=== PATIENT | female | born 1960 | race Hispanic/Latino ===

== ENCOUNTER → 2018-02-07 | Outpatient (CLI) | payer OTHER | END | disposition home or self-care (01) | LOC: RAH 10:24 | PROVIDERS: ATTEND Family Medicine | DX: K42.9 Umbilical hernia without obstruction or gangrene (principal) | CPT/HCPCS: 76705 ==

== ENCOUNTER → 2019-01-07 | Outpatient (CLI) | payer OTHER | END | disposition home or self-care (01) | LOC: RAH 12:34 | PROVIDERS: ATTEND Obstetrics & Gynecology | DX: Z12.31 Encounter for screening mammogram for malignant neoplasm of breast (principal) | CPT/HCPCS: 77067 ==

== ENCOUNTER 2019-07-07 08:30 | Day surgery (SDC) | payer OTHER ==
[2019-07-07] VITALS (7 sets, daily range): BP systolic 91–113; BP diastolic 41–55
[~2019-07-07 08:30] MED LIST: LIDOCAINE PO; LORA0.5T2 PO; MULT-1258 PO; PRAV40TA PO; PRED5TAB PO; PREG100C PO; PREM125 PO; RABE20 PO; SODIUM CHLORIDE 0.9% 1000ML 1,000 ML IV ONE; SUCR1TAB2 PO; TOPI100T31 PO
[2019-07-07] MEDS ORDERED: PRAV40TA PO (11:12)
[2019-07-07] MEDS ORDERED: SODIUM CHLORIDE 0.9% 10 ML VIAL ONE (13:14)
[2019-07-07] MEDS ORDERED: PHENYLEPHRINE HCL 10 MG/ML 1ML VIAL IV ONE (13:14)
[2019-07-07] MEDS ORDERED: PROPOFOL 10 MG/ML 20ML VIAL IV ONE (13:18)
--- NOTE | 2019-07-07 13:50 | NUR ---
SKIN TEAR PT. HAS SKIN TEAR TO THE LEFT FOREARM FROM A FALL AT HOME 4 DAYS AGO.
--- NOTE | 2019-07-07 13:55 | NUR ---
D/C PT. LEFT VIA WC WITH NO COMPLICATION.
--- NOTE | 2019-07-07 13:55 | NUR ---
D/C UPON D/C PT. STATED SHE FELL AT HOME 4 DAYS AGO HAS BRUISES TO L/B.
== END 2019-07-07 13:55 | disposition home or self-care (01) ==
LOC: ENDO 08:30 → DAH 08:30 → ENDO 13:55
PROVIDERS: ATTEND Internal Medicine Gastroenterology
DX: D12.2 Benign neoplasm of ascending colon (principal); D12.4 Benign neoplasm of descending colon; D12.3 Benign neoplasm of transverse colon; K57.30 Diverticulosis of large intestine without perforation or abscess without bleeding; K64.0 First degree hemorrhoids; K44.9 Diaphragmatic hernia without obstruction or gangrene; K22.8 Other specified diseases of esophagus; K31.89 Other diseases of stomach and duodenum; F41.9 Anxiety disorder, unspecified; F32.9 Major depressive disorder, single episode, unspecified; E78.5 Hyperlipidemia, unspecified; M79.7 Fibromyalgia; Z90.89 Acquired absence of other organs; Z90.710 Acquired absence of both cervix and uterus; Z88.2 Allergy status to sulfonamides; Z88.8 Allergy status to other drugs, medicaments and biological substances; Z79.899 Other long term (current) drug therapy; J45.909 Unspecified asthma, uncomplicated; K29.50 Unspecified chronic gastritis without bleeding
CPT/HCPCS: 43239; 45380; 45385; 88305; A4606; J2370; J2704; J7030

== ENCOUNTER → 2020-01-18 | Outpatient (CLI) | payer OTHER ==
[~2020-01-18] MED LIST changes: -SODIUM CHLORIDE 0.9% 1000ML 1,000 ML IV ONE
== END | disposition home or self-care (01) ==
LOC: RAH 08:37
PROVIDERS: ATTEND Family Medicine
DX: Z12.31 Encounter for screening mammogram for malignant neoplasm of breast (principal)
CPT/HCPCS: 77067

== ENCOUNTER → 2021-03-24 | Outpatient (CLI) | payer OTHER | END | disposition home or self-care (01) | LOC: RAH 09:34 | PROVIDERS: ATTEND Family Medicine | DX: Z12.31 Encounter for screening mammogram for malignant neoplasm of breast (principal) | CPT/HCPCS: 77067 ==